=== PATIENT | female | born 1985 | race Caucasian/White ===

== ENCOUNTER 2016-04-03 10:44 | Inpatient (IN) | payer MEDICAID ==
[2016-04-03] VITALS (8 sets, daily range): BP systolic 100–131; BP diastolic 60–78; PULSE 66–93; RESP 8–20; TEMP 98
[~2016-04-03 10:44] MED LIST: PRENCAP17 PO
[2016-04-03] MEDS ORDERED: LACTATED RINGER'S 1000 ML INJ 1,000 ML IV SCH (11:14)
[2016-04-03] MEDS ORDERED: LACTATED RINGER'S 1000 ML INJ 1,000 ML IV PRN (11:14)
[2016-04-03] MEDS ORDERED: LIDOCAINE HCL 1% 50 ML VIAL I-DERMAL PRN (11:15)
[2016-04-03] MEDS ORDERED: MINERAL OIL 10 ML VIAL TOPICAL PRN (11:15)
[2016-04-03] MEDS ORDERED: CITRIC ACID-SODIUM CITRATE LIQ 30 ML UDC PO SCH (11:15)
[2016-04-03] MEDS ORDERED: ONDANSETRON HCL 4 MG/2 ML VIAL IV PRN (11:15)
[2016-04-03] MEDS ORDERED: OXYTOCIN 30 UNITS-500ML PREMIX 500 ML IV ONE (11:15)
[2016-04-03] MEDS ORDERED: SODIUM CHLORID 0.9% 500 ML INJ 500 ML IV PRN (11:15)
[2016-04-03] MEDS ORDERED: LIDOCAINE HCL 1% 50 ML VIAL INFIL PRN (11:15)
--- NOTE | 2016-04-03 11:17 | HHI.HP ---
HPI Chief Complaint c/o CTXs Date Seen: Apr 03, 2016 Travel History International Travel<30 Days: No Contact w/Intl Traveler<30Days: No History of Present Illness HPI This patient is a 31-year-old white female 38 weeks gestation tomorrow patient of care for women presents complaining of severe contractions. Denies ruptured membranes or bleeding. Baby is active heart rate tracing is reactive and contractions are regular records are available Para: 2 : 3 History Obstetric History Obstetric History One term delivery, one delivery at 35 weeks Family History Family History: Negative Social History Alcohol Use: No Tobacco Use: Yes Substance Abuse: No Allergies-Medications (Allergen,Severity, Reaction): Coded Allergies: Penicillin (Verified Allergy, Severe, HIVES, 03/31/16) Amoxicillin (Verified Allergy, Mild, hives, 03/31/16) Home Meds Active Scripts Without A W/ Fe Carbo (Prenate Mini 29-0.6-0.4-350 mg)1 Cap Cap1 Tab PO DAILY #30 BOTTLE Ref 11 Prov:Anna Antonio 01/09/16 Review of Systems General / Constitutional: No: Fever, Weight Gain, Chills, Other Eyes: No: Diploplia, Blurred Vision, Visual changes, Pain, Photophobia HENT: No: Headaches, Vertigo, Lightheadedness Cardiovascular: No: Irregular Rhythm, Chest Pain or Discomfort, Palpitations, Tachycardia, Syncope, Varicosities, Edema, Cyanosis Respiratory: No: Cough, Short of Breath, Other Gastrointestinal: No: Nausea, Vomiting, Diarrhea Genitourinary: No: Decreased Urinary Output, Oliguria Musculoskeletal: No: Limited ROM, Weakness, Cramping, Edema, Pain Skin: No Rash, No Itching, No Dryness, No Lumps, No Change in Pigmentation, No Change in Nails, No Alopecia, No Lesions Neurologic: No: Weakness, Dizziness, Syncope, Focal Abnormalities, Coordination Problem, Headache, Slurred Speech, Seizures Psychiatric: No: Depression, Suicidal Ideations, Homicidal Ideation Endocrine: No: Heat Intolerance, Cold Intolerance, Polydipsia, Polyuria, Other Physical Exam Narrative GENERAL: Well-nourished, well-developed patient. SKIN: Warm and dry. HEAD: Normocephalic and atraumatic. EYES: No scleral icterus. No injection or drainage. ENT: No nasal drainage noted. Mucous membranes pink. Airway patent. NECK: Supple, trachea midline. No JVD. CARDIOVASCULAR: Regular rate and rhythm without murmurs, gallops, or rubs. RESPIRATORY: Breath sounds equal bilaterally. No accessory muscle use. BREASTS: Bilateral exam showed no masses , no retractions, no nipple discharge. ABDOMEN/GI: Abdomen soft, non-tender, bowel sounds present, no rebound, no guarding Gravid to [38-] weeks size Fundal Height: [-36 cm] GENITOURINARY: External Genitalia: intact and normal in appearance BUS glands: [-] Cervix: [-] Dilatation: [7-] Effacement: [100-] Station: [-1] Presentation: [vtx-] Membranes: [intact ] Uterine Contractions: [reg-] FHT's: Category: [1-] Baseline: [133-] Reactive: [yes-] Variability: [-mod] Decels: [-none] EXTREMITIES: No cyanosis or edema. BACK: Nontender without obvious deformity. No CVA tenderness. NEUROLOGICAL: Awake and alert. Motor and sensory grossly within normal limits. Five out of 5 muscle strength in all muscle groups. Normal speech. Data Data Orders Ob (2e) Additional Admit Info (04/03/16 10:57) Assessment/Plan Assessment and Plan This patient is a 31-year-old white female 38 weeks tomorrow presents in active labor 7 cm dilated vertex presentation with intact membranes and no vaginal bleeding, she is a patient of care for women at [facility] records are available. Plan to admit for vaginal delivery Aly Peters II, MD Apr 03, 2016 11:17
--- NOTE | 2016-04-03 11:24 | HHI.HP ---
History & Physical H&P Patient Name: Cha Venegas Unit Number: [id number] Date of : 1985 Patient Status: Admitted Inpatient Attending Doctor: Aly Peters II, MD HPI HPI Chief Complaint contractions Date Seen: Apr 03, 2016 Time Seen: 11:10 Travel History International Travel<30 Days: No Contact w/Intl Traveler<30Days: No History of Present Illness HPI 31 year old at 38 weeks gestation, patient of [facility], presents to labor and delivery with contractions that are occurring every 1 to 2 minutes. She has severe pain with contractions. No vaginal bleeding or gush of fluid. She has movements. No headaches, blurry vision, chest pain, shortness of breath, calf tenderness. History (Limited) History Past Medical History Narrative Medical None Obstetric History Obstetric History [facility] No complications in this GBS negative first : delivery term, vaginal, no complications second : delivered 4 weeks , vaginal, no other complications Past Surgical History Narrative Surgical None Family History Narrative Family History Mom: hypertension, thyroid disorder Father: unknown Social History Narrative Social History Smokes 1/2 PPD No drinking or drug use Allergies-Medications Allergies-Medications (Allergen,Severity, Reaction): Coded Allergies: Penicillin (Verified Allergy, Severe, HIVES, 03/31/16) Amoxicillin (Verified Allergy, Mild, hives, 03/31/16) Home Meds Active Scripts Without A W/ Fe Carbo (Prenate Mini 29-0.6-0.4-350 mg)1 Cap Cap1 Tab PO DAILY #30 BOTTLE Ref 11 Prov:Anna Antonio 01/09/16 ROS Review of Systems General / Constitutional: Weight Gain, No: Fever, Weight Loss, Chills Eyes: No: Diploplia, Blurred Vision, Visual changes HENT: No: Headaches, Vertigo, Lightheadedness Cardiovascular: No: Irregular Rhythm, Chest Pain or Discomfort, Palpitations, Tachycardia, Syncope Respiratory: No: Cough, Short of Breath, Wheezing Gastrointestinal: No: Nausea, Vomiting, Diarrhea, Abdominal Pain Genitourinary: No: Urgency, Frequency, Dysuria Musculoskeletal: No: Limited ROM, Weakness, Cramping, Edema, Pain Skin: No Rash, No Itching Neurologic: No: Weakness, Dizziness, Syncope, Focal Abnormalities, Coordination Problem, Headache, Slurred Speech Psychiatric: No: Anxiety, Depression Endocrine: No: Heat Intolerance, Cold Intolerance, Polydipsia, Polyuria Hematologic/Lymphatic: No Easy Bruising, No Lymph Node Enlargement Physical Exam Physical Exam Narrative GENERAL: Acute pain due to contractions SKIN: Warm and dry. HEAD: Normocephalic and atraumatic. EYES: No scleral icterus. No injection or drainage. ENT: No nasal drainage noted. Mucous membranes pink. Airway patent. NECK: Supple, trachea midline. No JVD. CARDIOVASCULAR: Regular rate and rhythm without murmurs, gallops, or rubs. RESPIRATORY: Breath sounds equal bilaterally. No accessory muscle use. ABDOMEN/GI: Abdomen soft, non-tender, bowel sounds present, no rebound, no guarding Gravid to 38 weeks size GENITOURINARY: External Genitalia: intact and normal in appearance Dilatation: 7 cm Effacement: 100% Station: 0 Presentation: vertex Membranes: intact Uterine Contractions: q1-2 mins FHT's: Category: 1 Baseline: 140 Reactive: yes Variability: moderate Decels: no EXTREMITIES: No cyanosis or edema. BACK: Nontender without obvious deformity. No CVA tenderness. NEUROLOGICAL: Awake and alert. Motor and sensory grossly within normal limits. Five out of 5 muscle strength in all muscle groups. Normal speech. Data Data Data Vital Signs Reviewed: Yes Orders Ob (2e) Additional Admit Info (04/03/16 10:57) Admit To Inpatient (04/03/16 ) Code Status (04/03/16 11:14) Vital Signs (Adult) .Per protocol (04/03/16 11:14) Activity Oob Ad Aida (04/03/16 11:14) ^ Heart (04/03/16 11:14) ^ Amnioinfusion (04/03/16 11:14) Urinary Catheter Management .ONCE (04/03/16 11:14) Diet Npo (04/03/16 Lunch) Lactated Ringer's 1000 Ml Inj (Lr 1000 M (04/03/16 11:14) Lactated Ringer's 1000 Ml Inj (Lr 1000 M (04/03/16 11:14) Sodium Chlorid 0.9% 500 Ml Inj (Ns 500 M (04/03/16 11:15) Sodium Chlor 0.9% 1000 Ml Inj (Ns 1000 M (04/03/16 11:34) Lidocaine 1% Inj (50 Ml) (Xylocaine 1% I (04/03/16 11:15) Citric Acid-Sodium Citrate Liq (Bicitra (04/03/16 11:15) Ondansetron Inj (Zofran Inj) (04/03/16 11:15) Fentanyl Inj (Fentanyl Inj) (04/03/16 11:15) Fentanyl Inj (Fentanyl Inj) (04/03/16 11:15) Complete Blood Count With Diff (04/03/16 11:14) Hold Clot (04/03/16 11:14) Abo/Rh Blood Type (04/03/16 11:14) Urinalysis - C+S If Indicated (04/03/16 11:14) Resp Oxygen Non Rebreathe Mask (04/03/16 ) ^ Epidural / Intrathecal Infus (04/03/16 11:14) Oxytocin 30 Units-500ml Premix (Pitocin (04/03/16 11:15) Lidocaine 1% Inj (50 Ml) (Xylocaine 1% I (04/03/16 11:15) Light Mineral Oil (Muri-Lube Oil) (04/03/16 11:15) Inpatient Certification (04/03/16 ) Specimen To Be Collected PRN (04/03/16 11:14) MDM MDM Medical Record Reviewed: Yes Interpretation(s) 31 year old at 38 weeks gestation presents with contractions and is currently at 7/100/0 with intact membranes. - Admit to labor and delivery. - Fentanyl for pain control. - Epidural - heart monitoring - Expectant management, plan for vaginal delivery Derick Carrasco MD R2 Apr 03, 2016 11:24
[2016-04-03 11:27] LABS: AUTOMATED NEUTROPHIL # 8.5 TH/MM3 (1.8-7.7); BASOPHIL % 0.3 % (0.0-2.0); EOSINOPHIL # 0.1 TH/MM3 (0-0.4); EOSINOPHIL % 0.6 % (0.0-4.0); HEMATOCRIT 38.8 % (35.0-46.0); HEMO FLAGS DIFF FINAL; LYMPHOCYTE # 3.8 TH/MM3 (1.0-4.8); MEAN CELL VOLUME 95.4 FL (80.0-100.0); MEAN CORPUSCULAR HEMOGLOBIN 32.5 PG (27.0-34.0); MEAN CORPUSCULAR HGB CONC 34.1 % (32.0-36.0); MONO % 6.1 % (0.0-8.0); PLATELET COUNT 257 TH/MM3 (150-450); RED BLOOD COUNT 4.07 MIL/MM3 (4.00-5.30); RED CELL DISTRIBUTION WIDTH 13.6 % (11.6-17.2); WHITE BLOOD COUNT 13.3 TH/MM3 (4.0-11.0)
[2016-04-03 11:33] LABS: BACTERIA, URINE RARE /hpf; BLOOD, URINE NEG (NEG); COMMENT (UR) CULT NOT INDICATED; CULTURE IF INDICATED CULT NOT INDICATED; GLUCOSE,URINE NEG (NEG); KETONE, URINE NEG (NEG); NITRITE,URINE NEG (NEG); PH, URINE 6.5 (5.0-8.5); SQUAMOUS EPITHELIAL CELL URINE 2 /hpf (0-5); URINE COLOR LIGHT-YELLOW (YELLW/STRAW)
[2016-04-03] MEDS ORDERED: SODIUM CHLOR 0.9% 1000 ML INJ 1,000 ML IV PRN (11:34)
--- NOTE | 2016-04-03 12:38 | PD.OB.DELI ---
Delivery Date: Apr 03, 2016 Anesthesia: None Episiotomy: None Vaginal Delivery: Normal Presentation: Occiput anterior Nuchal Cord: None Infant: Female One Minute : 9 Five Minute : 9 Weight: 3305g Care: Suctioned, Spontaneous crying, Responded to stimulation Placenta: Spontaneous delivery, Intact, 3 vessel cord Laceration: 2 deg Repair: Chromic running Additional Information Spontaneous vaginal delivery. Placenta delivered spontaneously, intact. 2nd degree laceration repaired with running 2-0 chromic Kin Brock MD R1 Apr 03, 2016 12:38
[2016-04-03] MEDS ORDERED: WITCH HAZEL 50%/GLYCERIN 12.5% 40 PAD JAR TOPICAL PRN (12:45)
[2016-04-03] MEDS ORDERED: ONDANSETRON ODT 4 MG TAB PO PRN (12:45)
[2016-04-03] MEDS ORDERED: ZOLPIDEM TARTRATE 5 MG TAB PO PRN (12:45)
[2016-04-03] MEDS ORDERED: BENZOCAINE 20% TOPICAL SPRAY 60 ML CAN TOPICAL PRN (12:45)
[2016-04-03] MEDS ORDERED: ALUMINUM/MAGNESIUM/SIMETH 30 ML CUP PO PRN (12:45)
[2016-04-03] MEDS ORDERED: DOCUSATE SODIUM 50 MG/SENNA 8.6 MG TAB PO PRN (12:45)
[2016-04-03] MEDS ORDERED: SODIUM CHLORIDE 0.9% FLUSH 5 ML FLUSH IV PRN (12:45)
--- NOTE | 2016-04-03 12:49 | PD.LABORPN ---
Subjective Subjective Patient with spontaneous vaginal delivery without any complications over second- degree perineal laceration, no complications delivery, cord blood obtained placenta delivered spontaneously intact liver and perform other family medicine team supervised the delivery. There were no complications Objective Objective Pelvic Exam: Cervix: [-] Dilatation: [-] Effacement: [-] Station: [-] Presentation: [-] Membranes: [intact or ruptured] Uterine Contractions: [-] FHT's: Category: [-] Baseline: [-] Reactive: [-] Variability: [-] Decels: [-] Aly Peters II, MD Apr 03, 2016 12:49
[2016-04-03] MEDS: IBUPROFEN 600 MG TAB PO PRN ×2 (14:57→21:02)
[2016-04-03] MEDS: ACETAMINOPHEN 325 MG TAB PO PRN ×2 (14:57→19:42)
[2016-04-03] MEDS ORDERED: DIPHTH/TETANUS/ACEL PERTUSSIS (BOOSTER) 0.5 ML VIAL/PFS IM ONE (16:00)
[2016-04-03] MEDS ORDERED: MEASLES, MUMPS, RUBELLA VACCINE 0.5 ML VIAL SQ ONE (16:00)
[2016-04-03] MEDS ORDERED: SODIUM CHLORIDE 0.9% FLUSH 5 ML FLUSH IV SCH (21:00)
[2016-04-04] MEDS: ACETAMINOPHEN 325 MG TAB PO PRN ×2 (00:32→08:39)
[2016-04-04] MEDS: oxyCODONE/ACETAMINOPHEN 5 MG/325 MG TAB PO PRN ×5 (01:58→22:36)
[2016-04-04] MEDS ORDERED: oxyCODONE/ACETAMINOPHEN 5 MG/325 MG TAB PO PRN (02:00)
[2016-04-04 03:00] VITALS: BP 104/76; PULSE 74; RESP 14; TEMP 97.4; O2SAT 99
[2016-04-04] MEDS: IBUPROFEN 600 MG TAB PO PRN ×3 (06:16→18:34)
[2016-04-04 08:00] VITALS: BP 113/70; PULSE 68; RESP 18
--- NOTE | 2016-04-04 08:14 | HHI.OB ---
Subjective Remarks 31 year old post- day 1 after vaginal delivery. Doing well this morning. Formula feeding, encouraging . Will follow with [facility]. Desires to have tubal ligation with OB, already signed consent. Has flatus but no bowel movement. Objective Vitals/I&O Vital Signs Date Time Temp Pulse Resp B/P Pulse Ox O2 Delivery O2 Flow Rate FiO2 04/04/16 03:00 97.4 74 14 104/76 99 04/03/16 19:25 67 121/75 04/03/16 19:25 98.0 17 04/03/16 13:30 66 124/78 04/03/16 13:15 67 126/68 04/03/16 13:00 74 123/77 04/03/16 12:45 73 18 116/78 04/03/16 12:30 84 122/62 04/03/16 12:30 8 04/03/16 12:28 87 100/70 04/03/16 12:15 93 20 131/60 Objective Remarks GENERAL: Well-nourished, well-developed patient. CARDIOVASCULAR: Regular rate and rhythm without murmurs, gallops, or rubs. RESPIRATORY: Breath sounds equal bilaterally. No accessory muscle use. ABDOMEN/GI: Abdomen soft, non-tender. Fundus: Firm, non-tender at umbilicus. GENITOURINARY: Light to moderate bleeding. EXTREMITIES: No cyanosis or edema, non-tender, without signs of DVT. Medications and IVs Current Medications Medications (Trade) Dose Ordered Sig/Monae Route Start Time Stop Time Status Last Admin Lactated Ringer's 1,000 ml @ 125 mls/hr Q8H IV 04/03/16 11:14 04/03/16 11:14 Lactated Ringer's 1,000 ml @ 3,000 mls/hr Q20M PRN IV 04/03/16 11:14 Sodium Chloride 500 ml @ 1,000 mls/hr ONCE PRN IV 04/03/16 11:15 04/05/16 11:14 (NS 1000 ml Inj) 1,000 ml @ 100 mls/hr Q10H PRN IV 04/03/16 11:34 (Zofran Inj) 4 mg Q6H PRN IV 04/03/16 11:15 (Muri-Lube Oil) 10 ml UNSCH PRN TOPICAL 04/03/16 11:15 (NS Flush) 2 ml BID IV 04/03/16 21:00 (NS Flush) 2 ml UNSCH PRN IV 04/03/16 12:45 (Tylenol) 650 mg Q4H PRN PO 04/03/16 12:45 04/04/16 00:32 (Motrin) 600 mg Q6H PRN PO 04/03/16 12:45 04/04/16 06:16 (Americaine 20% Top Spr) 1 spray Q4H PRN TOPICAL 04/03/16 12:45 04/03/16 16:30 (Tucks Pads) 1 applic QID PRN TOPICAL 04/03/16 12:45 04/03/16 16:30 (Kary-Colace) 2 tab Q12H PRN PO 04/03/16 12:45 (Ambien) 5 mg HS PRN PO 04/03/16 12:45 04/03/16 23:42 (Mag-Al Plus Susp Liq) 15 ml Q8H PRN PO 04/03/16 12:45 (Zofran Odt) 4 mg Q6H PRN PO 04/03/16 12:45 (Flu (Quadrivalent) Vaccine Inj) 0.5 ml ONCE ONCE IM 04/04/16 10:00 04/04/16 10:01 (Percocet 5-325 Mg) 1 tab Q4H PRN PO 04/04/16 02:00 04/04/16 06:17 (Percocet 5-325 Mg) 2 tab Q4H PRN PO 04/04/16 02:00 04/04/16 01:58 Assessment/Plan Assessment and Plan 31 year old post- day 1 after vaginal delivery. - Ibuprofen for pain control. - Pelvic rest for 6 weeks. - Monitor lochia. - Encourage ambulation. - Will follow up with Stephanie Kapoor within 6 weeks. - Encourage . Derick Carrasco MD R2 Apr 04, 2016 08:14
--- NOTE | 2016-04-04 09:12 | HHI.OB ---
Subjective Post Day: 1 Remarks doing well no problems, seen with [facility] med residents agree with eval and plan Objective Vitals/I&O Vital Signs Date Time Temp Pulse Resp B/P Pulse Ox O2 Delivery O2 Flow Rate FiO2 04/04/16 03:00 97.4 74 14 104/76 99 04/03/16 19:25 67 121/75 04/03/16 19:25 98.0 17 04/03/16 13:30 66 124/78 04/03/16 13:15 67 126/68 04/03/16 13:00 74 123/77 04/03/16 12:45 73 18 116/78 04/03/16 12:30 84 122/62 04/03/16 12:30 8 04/03/16 12:28 87 100/70 04/03/16 12:15 93 20 131/60 Objective Remarks GENERAL: Well-nourished, well-developed patient. CARDIOVASCULAR: Regular rate and rhythm without murmurs, gallops, or rubs. RESPIRATORY: Breath sounds equal bilaterally. No accessory muscle use. ABDOMEN/GI: Abdomen soft, non-tender. Fundus: Firm, non-tender at umbilicus. GENITOURINARY: Light to moderate bleeding. EXTREMITIES: No cyanosis or edema, non-tender, without signs of DVT. Medications and IVs Current Medications Medications (Trade) Dose Ordered Sig/Monae Route Start Time Stop Time Status Last Admin Lactated Ringer's 1,000 ml @ 125 mls/hr Q8H IV 04/03/16 11:14 04/03/16 11:14 Lactated Ringer's 1,000 ml @ 3,000 mls/hr Q20M PRN IV 04/03/16 11:14 Sodium Chloride 500 ml @ 1,000 mls/hr ONCE PRN IV 04/03/16 11:15 04/05/16 11:14 (NS 1000 ml Inj) 1,000 ml @ 100 mls/hr Q10H PRN IV 04/03/16 11:34 (Zofran Inj) 4 mg Q6H PRN IV 04/03/16 11:15 (Muri-Lube Oil) 10 ml UNSCH PRN TOPICAL 04/03/16 11:15 (NS Flush) 2 ml BID IV 04/03/16 21:00 (NS Flush) 2 ml UNSCH PRN IV 1/26/17 12:45 (Tylenol) 650 mg Q4H PRN PO 04/03/16 12:45 04/04/16 08:39 (Motrin) 600 mg Q6H PRN PO 04/03/16 12:45 04/04/16 06:16 (Americaine 20% Top Spr) 1 spray Q4H PRN TOPICAL 04/03/16 12:45 04/03/16 16:30 (Tucks Pads) 1 applic QID PRN TOPICAL 04/03/16 12:45 04/03/16 16:30 (Kary-Colace) 2 tab Q12H PRN PO 04/03/16 12:45 (Ambien) 5 mg HS PRN PO 04/03/16 12:45 04/03/16 23:42 (Mag-Al Plus Susp Liq) 15 ml Q8H PRN PO 04/03/16 12:45 (Zofran Odt) 4 mg Q6H PRN PO 04/03/16 12:45 (Flu (Quadrivalent) Vaccine Inj) 0.5 ml ONCE ONCE IM 04/04/16 10:00 04/04/16 10:01 (Percocet 5-325 Mg) 1 tab Q4H PRN PO 04/04/16 02:00 04/04/16 06:17 (Percocet 5-325 Mg) 2 tab Q4H PRN PO 04/04/16 02:00 04/04/16 01:58 Assessment/Plan Assessment and Plan 31 year old post- day 1 after vaginal delivery. - Ibuprofen for pain control. - Pelvic rest for 6 weeks. - Monitor lochia. - Encourage ambulation. - Will follow up with Stephanie Kapoor within 6 weeks. - Encourage . Aly Peters II, MD Apr 04, 2016 09:12
[2016-04-04] MEDS ORDERED: INFLUENZA VIRUS VACCINE (QUADRIVALENT) 0.5 ML SYR IM ONE (10:00)
[2016-04-04 19:05] VITALS: BP 119/72; PULSE 84; RESP 20; TEMP 97.6; O2SAT 98
[2016-04-04 22:25] VITALS: BP 116/71; PULSE 72; RESP 20; TEMP 97.8
[2016-04-05] MEDS: IBUPROFEN 600 MG TAB PO PRN ×2 (00:58→08:06)
[2016-04-05] MEDS: oxyCODONE/ACETAMINOPHEN 5 MG/325 MG TAB PO PRN (05:59)
[2016-04-05] MEDS ORDERED: OXYC1TAB63 PO (07:04)
[2016-04-05] MEDS ORDERED: SENN1TAB PO (07:04)
[2016-04-05] MEDS ORDERED: IBUP-232 PO (07:04)
--- NOTE | 2016-04-05 07:04 | HHI.DCPOC ---
Discharge Care Plan Diagnosis: (1) Vaginal delivery Goals to Promote Your Health * To prevent worsening of your condition and complications * To maintain your health at the optimal level Directions to Meet Your Goals Take your medications as prescribed Follow your dietary instruction Follow activity as directed Keep your appointments as scheduled Take your immunizations and boosters as scheduled If your symptoms worsen call your PCP, if no PCP go to Urgent Care Center or Emergency Room Smoking is Dangerous to Your Health. Avoid second hand smoke Call the 24-hour hour crisis hotline for domestic abuse at Attestation Patient seen and examined with the resident under direct supervision, I agree with the assessment and plan. Derick Carrasco MD R2 Apr 05, 2016 07:04 Carter Lockhart MD Apr 05, 2016 09:50
[2016-04-05 07:50] VITALS: BP 106/74
--- NOTE | 2016-04-05 07:52 | HHI.OB ---
Subjective Remarks 31 year old post- day 2 after vaginal delivery. Doing well this morning. Formula feeding, encouraging . Will follow with [facility]. Desires to have tubal ligation with OB, already signed consent. Ambulating. Pain well controlled but is requiring some Percocet. (Derick Carrasco MD R2) Objective Vitals/I&O Vital Signs Date Time Temp Pulse Resp B/P Pulse Ox O2 Delivery O2 Flow Rate FiO2 04/04/16 22:25 97.8 72 20 116/71 04/04/16 19:05 84 20 119/72 04/04/16 19:05 97.6 98 04/04/16 08:00 68 18 113/70 Objective Remarks GENERAL: Well-nourished, well-developed patient. CARDIOVASCULAR: Regular rate and rhythm without murmurs, gallops, or rubs. RESPIRATORY: Breath sounds equal bilaterally. No accessory muscle use. ABDOMEN/GI: Abdomen soft, non-tender. Fundus: Firm, non-tender at umbilicus. GENITOURINARY: Light to moderate bleeding. EXTREMITIES: No cyanosis or edema, non-tender, without signs of DVT. Medications and IVs Current Medications Medications (Trade) Dose Ordered Sig/Monae Route Start Time Stop Time Status Last Admin Lactated Ringer's 1,000 ml @ 125 mls/hr Q8H IV 04/03/16 11:14 04/03/16 11:14 Lactated Ringer's 1,000 ml @ 3,000 mls/hr Q20M PRN IV 04/03/16 11:14 Sodium Chloride 500 ml @ 1,000 mls/hr ONCE PRN IV 04/03/16 11:15 04/05/16 11:14 (NS 1000 ml Inj) 1,000 ml @ 100 mls/hr Q10H PRN IV 04/03/16 11:34 (Zofran Inj) 4 mg Q6H PRN IV 04/03/16 11:15 (Muri-Lube Oil) 10 ml UNSCH PRN TOPICAL 04/03/16 11:15 (NS Flush) 2 ml BID IV 04/03/16 21:00 (NS Flush) 2 ml UNSCH PRN IV 04/03/16 12:45 (Tylenol) 650 mg Q4H PRN PO 04/03/16 12:45 04/04/16 08:39 (Motrin) 600 mg Q6H PRN PO 04/03/16 12:45 04/05/16 00:58 (Americaine 20% Top Spr) 1 spray Q4H PRN TOPICAL 04/03/16 12:45 04/03/16 16:30 (Tucks Pads) 1 applic QID PRN TOPICAL 04/03/16 12:45 04/03/16 16:30 (Kary-Colace) 2 tab Q12H PRN PO 04/03/16 12:45 04/04/16 22:37 (Ambien) 5 mg HS PRN PO 04/03/16 12:45 04/03/16 23:42 (Mag-Al Plus Susp Liq) 15 ml Q8H PRN PO 04/03/16 12:45 (Zofran Odt) 4 mg Q6H PRN PO 04/03/16 12:45 (Percocet 5-325 Mg) 1 tab Q4H PRN PO 04/04/16 02:00 04/04/16 06:17 (Percocet 5-325 Mg) 2 tab Q4H PRN PO 04/04/16 02:00 04/05/16 05:59 (Derick Carrasco MD R2) Assessment/Plan Assessment and Plan 31 year old post- day 2 after vaginal delivery. - Ibuprofen and Percocet for pain control. - Pelvic rest for 6 weeks. - Monitor lochia. - Encourage ambulation. - Will follow up with Stephanie Kapoor within 6 weeks. - Encourage . (Derick Carrasco MD R2) Attending Attestation Patient seen and examined with the resident under direct supervision and I agree with the assessment and plan. (Carter Lockhart MD) Derick Carrasco MD R2 Apr 05, 2016 07:52 Carter Lockhart MD Apr 05, 2016 09:52
[2016-04-22] MEDS ORDERED: AZIT500T2 PO (15:36)
== END 2016-04-05 11:45 | disposition home or self-care (01) | DRG 775 ==
LOC: HOBED 10:44 → H2EA 11:00 → H1EA 14:15
PROVIDERS: ADMIT Obstetrics & Gynecology Maternal & Fetal Medicine; ATTEND Obstetrics & Gynecology Maternal & Fetal Medicine
PROC: 10E0XZZ Delivery of Products of Conception, External Approach (ICD-10-PCS; principal; 2016-04-03)
PROC: 0KQM0ZZ Repair Perineum Muscle, Open Approach (ICD-10-PCS; 2016-04-03)
DX: O99.334 Smoking (tobacco) complicating childbirth (principal); F17.210 Nicotine dependence, cigarettes, uncomplicated; O70.1 Second degree perineal laceration during delivery; Z37.0 Single live birth; Z3A.38 38 weeks gestation of pregnancy; Z23 Encounter for immunization
CPT/HCPCS: 81001; 85025; 86900; 86901; 90686; 90715; 99285; J3010; J7120; Q2038

== ENCOUNTER → 2017-07-07 | Outpatient (CLI) | payer MEDICAID ==
[2017-07-07 15:01] LABS: AUTOMATED NEUTROPHIL # 3.2 TH/MM3 (1.8-7.7); BASOPHIL % 0.4 % (0.0-2.0); EOSINOPHIL # 0.1 TH/MM3 (0-0.4); EOSINOPHIL % 2.1 % (0.0-4.0); HEMATOCRIT 37.3 % (35.0-46.0); HEMO FLAGS DIFF FINAL; HEMOGLOBIN 12.7 GM/DL (11.6-15.3); LYMPH % 46.5 % (9.0-44.0); LYMPHOCYTE # 3.2 TH/MM3 (1.0-4.8); MEAN CELL VOLUME 93.4 FL (80.0-100.0); MEAN CORPUSCULAR HEMOGLOBIN 31.8 PG (27.0-34.0); MEAN CORPUSCULAR HGB CONC 34.1 % (32.0-36.0); MEAN PLATELET VOLUME 8.8 FL (7.0-11.0); MONO % 4.2 % (0.0-8.0); MONOCYTE # 0.3 TH/MM3 (0-0.9); NEUT % 46.8 % (16.0-70.0); PLATELET COUNT 221 TH/MM3 (150-450); RED BLOOD COUNT 3.99 MIL/MM3 (4.00-5.30); RED CELL DISTRIBUTION WIDTH 13.9 % (11.6-17.2); WHITE BLOOD COUNT 6.9 TH/MM3 (4.0-11.0)
[2017-07-07 15:37] LABS: BILIRUBIN, URINE NEG (NEG); BLOOD, URINE SMALL (NEG); COMMENT (UR) CULT NOT INDICATED; CULTURE IF INDICATED CULT NOT INDICATED; GLUCOSE,URINE NEG (NEG); KETONE, URINE NEG (NEG); NITRITE,URINE NEG (NEG); SQUAMOUS EPITHELIAL CELL URINE 2 /hpf (0-5); URINE COLOR LIGHT-YELLOW (YELLW/STRAW); URINE LEUKOCYTE ESTERASE NEG (NEG)
[2017-07-07 15:48] LABS: ALBUMIN 3.6 GM/DL (3.4-5.0); ALKALINE PHOSPHATASE 53 U/L (45-117); ALT (GPT) 10 U/L (10-53); ANION GAP 5 MEQ/L (5-15); AST (GOT) 14 U/L (15-37); BICARBONATE 27.9 MEQ/L (21.0-32.0); BLOOD UREA NITROGEN 6 MG/DL (7-18); CALCIUM 8.2 MG/DL (8.5-10.1); CHLORIDE 108 MEQ/L (98-107); CREATININE 0.55 MG/DL (0.50-1.00); GLOMERULAR FILTRATION RATE 127 ML/MIN (>89); GLUCOSE,FASTING 99 MG/DL (74-99); POTASSIUM 4.3 MEQ/L (3.5-5.1); SODIUM (NA) 141 MEQ/L (136-145); TOTAL BILIRUBIN ADULT 0.2 MG/DL (0.2-1.0); TOTAL PROTEIN 6.8 GM/DL (6.4-8.2)
[2017-07-07 16:04] LABS: BHCG SCREEN QUALITATIVE LESS THAN 1 MIU/ML (0-5)
== END ==
LOC: CPRE 14:18
DX: Z01.812 Encounter for preprocedural laboratory examination (principal)
CPT/HCPCS: 36415; 80053; 81001; 84703; 85025

== ENCOUNTER → 2017-07-17 | Day surgery (SDC) | payer MEDICAID ==
--- NOTE | 2017-07-07 15:53 | MH ---
cc: Kelechi Denney MD, Jesse S MD DATE OF ADMISSION: 07/17/2017 REASON FOR ADMISSION: Laparoscopic sterilization. HISTORY OF PRESENT ILLNESS: The patient is a 32-year-old white female, 3, para 3, who has completed childbearing and wants to proceed with surgical sterilization. PAST MEDICAL HISTORY: Notable for opiate use. She is presently on Suboxone with good result. Otherwise, negative for heart, lung, liver disease, hypertension, diabetes or stroke. PAST SURGICAL HISTORY: None. OB HISTORY: Three vaginal deliveries. DESIGN VERIFICATION ENGINEER HISTORY: No history of abnormal Pap smears. SOCIAL HISTORY: Smokes a pack a day. 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 FAMILY HISTORY: Noncontributory. ALLERGIES: AMOXICILLIN AND PENICILLIN. FAMILY HISTORY: Noncontributory. REVIEW OF SYSTEMS: As above. No chest pain, orthopnea, PND. No nausea, vomiting, fever or chills. No vaginal bleeding or discharge. PHYSICAL EXAMINATION: VITAL SIGNS: She is afebrile with stable vital signs. Height is 5 feet 2 inches, weight 128, BMI is 23. The patient's blood pressure 100/60. GENERAL: Alert and oriented, in no acute distress. No sign of cognitive dysfunction or depression. HEENT: Within normal limits. NECK: Supple. No JVD. CHEST: Clear. HEART: Regular rate and rhythm. ABDOMEN: Soft, nontender. No hepatosplenomegaly and no CVA tenderness. PELVIC: Exam will be detailed under anesthesia. EXTREMITIES: Normal skin without rashes. NEUROLOGIC: Nonfocal. No DVT signs. ASSESSMENT AND PLAN: The patient with multiparity, desires sterilization. She is aware of the risks, benefits and alternatives of the planned procedure including damage to surrounding organs, bleeding, infection, issues regarding failure of sterilization are discussed, as well as the irreversibility of the procedure and alternative methods. At this point, we will use FLAGYL AND CLEOCIN IN LIGHT OF HER ALLERGIES. For DVT prophylaxis, we will use sequential compression device. Anticipate outpatient procedure. Kelechi Denney MD CJS/TL , 03:21 PM , 03:52 PM
[~2017-07-17] VITALS: Ht 152.4 cm; Wt 56.5 kg
[~2017-07-17] MED LIST changes: +*MEPERIDINE 25 MG INJ VIAL PERIprocedural Use ONLY ONE; +*morphine SULFATE 4 MG/ML PERIprocedure ONLY ONE; +ACETAMINOPHEN 1000 MG/100 ML 100 ML IV ONE; +CHLORHEXIDINE GLUCONATE 2 % 1 PACK (2 CLOTHS) TOPICAL PRN; +CLINDAMYCIN 600 MG/NS PREMIX 50 ML IV SCH; +DO NOT ADM ANY ANTICOAGULANT DRUGS PRN; +GLYCOPYRROLATE 1 MG/5 ML SYRINGE IV PUSH ONE; +KETOROLAC TROMETHAMINE 30 MG/ML (IVP) VIAL IV PUSH ONE; +KETOROLAC TROMETHAMINE 60 MG/2 ML (IM) VIAL IM PRN; +LACTATED RINGER'S 1000 ML IV PRN; +LIDOCAINE 1%/EPINEPHrine 1:100,000 SOLN 50 ML VIAL ONE; +LIDOCAINE HCL 1% PF 5 ML SYRINGE OTHER ONE; +METOPROLOL TARTRATE 25 MG TAB PO PRN; +METRONIDAZOLE 500 MG/100 ML ISONTONIC SOLN IV SCH; +MIDAZOLAM HCL 2 MG/2 ML VIAL ONE; +NEOSTIGMINE 5 MG/5 ML SYRINGE IV PUSH ONE; +ONDANSETRON HCL 4 MG/2 ML VIAL IV PUSH ONE; +ONDANSETRON ODT 4 MG TAB PO PRN; +POVIDONE IODINE 5% (ANTISEPSIS KIT) 4 APPLICATIONS EACH NARE PRN; -PRENCAP17 PO; +PROPOFOL 200 MG/20 ML AMP IV ONE; +ROCURONIUM INJ 50 MG/5 ML SYRINGE IV PUSH ONE; +SODIUM CHLORID 0.9% 500 ML IV PRN; +traMADol HCL 50 MG TAB PO PRN
[2017-07-17 11:24] VITALS: RESP 16
--- NOTE | 2017-07-17 11:37 | MP ---
cc: Kelechi Denney MD DATE OF OPERATION: 07/17/2017 NO DICTATION Kelechi Denney MD CJS/SB , 11:05 AM , 11:36 AM
--- NOTE | 2017-07-17 11:59 | MP ---
cc: Kelechi Denney MD DATE OF OPERATION: 07/17/2017 PREOPERATIVE DIAGNOSIS: Multiparity, desires sterilization. POSTOPERATIVE DIAGNOSES: Multiparity, desires sterilization with evidence of chronic pelvic inflammation, possible endometriosis or pelvic inflammatory disease. SURGEON: Kelechi Denney MD. ANESTHESIA: General endotracheal. BLOOD LOSS: 5 mL. URINE OUTPUT: 100 mL ADOBE MAKER. [facility] staff x 1. PROCEDURE PERFORMED: Laparoscopic bilateral salpingectomy. SPECIMENS: Right and left tubes. FINDINGS: External genitalia normal except there is an excoriation at the fourchette that was present prior to examination. Uterus is anteverted and anteflexed. Pop-Q score Aa is -2, Ap is -2, point C is -6, total vaginal length is 10, genital hiatus is 6, perineal body is 4. Internal anatomy shows evidence of chronic inflammation with adhesions of the bladder to the anterior uterine fundus. Also, the tubes were hydropic and bowel seems to be distended consistent with IBS. Liver and gallbladder appeared to be normal. COMPLICATIONS: None. DISPOSITION: To recovery room stable. COUNTS: Needle and sponge counts correct. DRAINS: Schaeffer catheter. SUMMARY OF INDICATIONS FOR THE PROCEDURE: Patient with multiparity, desires sterilization. DESCRIPTION OF THE PROCEDURE: The patient taken to the operating theater, identified, prepped and draped in the fashion appropriate for the planned procedure. She was in the dorsal lithotomy position with careful attention paid to placement of legs in the stirrups to avoid undue stress to sensitive neurovascular structures. The above findings were noted. Neurovascular integrity documented. Epinephrine, lidocaine solution was infiltrated in the umbilicus. A small incision was made and a 5 mm scope was placed under direct visualization. The above findings were noted. After gas was insufflated, we then placed axillary trocars suprapubically and in the left lower quadrant under direct visualization. The tubes were identified, taken down with harmonic energy with good result making sure we were clear of the infundibulopelvic ligament, the ureters and other vital structures including bowel. This procedure was performed on each side without complication. Tubes were removed. Gas was expressed. All areas were hemostatic with and without gas pressure. The trocars were removed, gas expressed, incisions were closed with 4-0 Monocryl and Dermabond. The patient tolerated the procedure well, went to the recovery room in stable condition. If the patient should have issues in the future requiring hysterectomy, it would be important to note that she does have a surprising amount of adhesive disease and very limited symptomatology at this point. Vaginal hysterectomy may be difficult, probably best approached with a laparoscopic assisted technique. Kelechi Denney MD CJYolie/SHAWNA , 11:08 AM , 11:58 AM
[2017-07-17 12:05] VITALS: BP 111/72; PULSE 64; TEMP 97.8; O2SAT 16
== END | disposition home or self-care (01) ==
LOC: HSDC 07:29
PROVIDERS: ATTEND Obstetrics & Gynecology Gynecology
DX: Z30.2 Encounter for sterilization (principal); N73.6 Female pelvic peritoneal adhesions (postinfective); F17.210 Nicotine dependence, cigarettes, uncomplicated; Z88.0 Allergy status to penicillin
CPT/HCPCS: 00840; 58661; 88305; J0131; J1885; J2175; J2250; J2270; J2405; J2710; J3010; J7120